=== PATIENT | male | born 1995 | race Caucasian/White ===

== ENCOUNTER 2018-06-26 05:32 | Emergency (ER) | payer OTHER ==
[2018-06-26] MEDS ORDERED: Aspirin 325 mg EC Tablets PO STA (06:25)
--- NOTE | 2018-06-26 06:25 | C.PDOC ---
Time Seen by Provider: 06/26/18 06:18 Chief Complaint (Nursing): Chest Pain Past Medical History Vital Signs: Last Vital Signs Temp Pulse 73 06/26/18 06:23 Resp 12 06/26/18 06:23 BP 138/100 H 06/26/18 06:23 Pulse Ox 99 06/26/18 06:23 - Medical History PMH: Denies: Chronic Kidney Disease - Social History Hx Tobacco Use: No Hx Alcohol Use: Yes Hx Substance Use: No - Immunization History Hx Tetanus Toxoid Vaccination: No Hx Influenza Vaccination: No Hx Pneumococcal Vaccination: No ED Course And Treatment O2 Sat by Pulse Oximetry: 99 Disposition Counseled Patient/Family Regarding: Studies Performed, Diagnosis - Disposition Disposition Time: 06:25 Forms: [facility] (Bahraini)
--- NOTE | 2018-06-26 06:28 | C.PDOC ---
History Of Present Illness 23 year old male presents to the emergency department with complaints of chest pain and abdominal pain. Patient reports that he woke up with mid-epigastric discomfort, which he describes as dull, aching, and radiating to his back. He also reports symptoms of left chest wall pressure, but denies nausea or vomiting. He qualifies his discomfort as 4/10 in severity. Time Seen by Provider: 06/26/18 06:18 Chief Complaint (Nursing): Chest Pain History Per: Patient History/Exam Limitations: no limitations Onset/Duration Of Symptoms: Hrs Current Symptoms Are (Timing): Still Present Severity: Moderate Pain Scale Rating Of: 4 Quality: Dull, Aching, Other (discomfort) Associated Symptoms: denies: Nausea, Other (vomiting) Alleviating Factors: None Recent travel outside of the [place]: No Additional History Per: Family Past Medical History Reviewed: Historical Data, Nursing Documentation, Vital Signs Vital Signs: Last Vital Signs Temp 97.9 F 06/26/18 05:39 Pulse 73 06/26/18 06:23 Resp 12 06/26/18 06:23 BP 138/100 H 06/26/18 06:23 Pulse Ox 99 06/26/18 06:32 - Medical History PMH: No Chronic Diseases Denies: Chronic Kidney Disease Surgical History: No Surg Hx Family History: States: No Known Family Hx - Social History Hx Tobacco Use: No Hx Alcohol Use: Yes Hx Substance Use: No - Immunization History Hx Tetanus Toxoid Vaccination: No Hx Influenza Vaccination: No Hx Pneumococcal Vaccination: No Review Of Systems Constitutional: Negative for: Fever, Chills Eyes: Negative for: Vision Change ENT: Negative for: Throat Pain Cardiovascular: Positive for: Chest Pain Respiratory: Negative for: Shortness of Breath Gastrointestinal: Positive for: Abdominal Pain. Negative for: Nausea, Vomiting Genitourinary: Negative for: Dysuria Musculoskeletal: Positive for: Back Pain Skin: Negative for: Rash Neurological: Negative for: Weakness Psych: Negative for: Anxiety Physical Exam - Physical Exam Appears: Non-toxic, No Acute Distress Skin: Warm, Dry Head: Normacephalic Eye(s): bilateral: Normal Inspection Oral Mucosa: Moist Neck: Trachea Midline, Supple Chest: Symmetrical, No Tenderness Cardiovascular: Rhythm Regular, No Murmur Respiratory: No Rales, No Rhonchi, No Wheezing Gastrointestinal/Abdominal: Soft, Tenderness (mid-epigastric tenderness), No Distention, No Guarding, No Rebound Back: Normal Inspection, No CVA Tenderness, No Vertebral Tenderness, No Paraspinal Tenderness Extremity: Normal ROM Extremity: Bilateral: Atraumatic, Normal Color And Temperature Pulses: Left Dorsalis Pedis: Normal, Right Dorsalis Pedis: Normal Neurological/Psych: Oriented x3 Gait: Steady ED Course And Treatment ECG: Interpreted By Me, Viewed By Me ECG Rhythm: Sinus Rhythm, Nonspecific Changes O2 Sat by Pulse Oximetry: 99 (RA) Pulse Ox Interpretation: Normal Progress Note: Plan: CT Chest. EKG. CMP. Drug Screen. Troponin. CBC. PTT. Prothrombin Time. Ecotrin 325mg PO. Urinalysis Disposition - Disposition Disposition Time: 06:45 Condition: FAIR Forms: [facility] (Vietnamese) - Clinical Impression Clinical Impression: Chest pain - Scribe Statement The provider has reviewed the documentation as recorded by the Scribe (Omid Goodwin) Provider Attestation: All medical record entries made by the Scribe were at my direction and personally dictated by me. I have reviewed the chart and agree that the record accurately reflects my personal performance of the history, physical exam, medical decision making, and the department course for this patient. I have also personally directed, reviewed, and agree with the discharge instructions and disposition. Physician Patient Turnover Patient Signed Over To: Delia Narayanan Handoff Comments: pending labs and disposition Decision To Admit - . Patient Diagnosis: Chest pain
[2018-06-26 06:44] LABS: BASO # 0.1 K/uL (0.0-0.2); BASO % 1.2 % (0.0-2.0); EOS # 0.3 K/uL (0.0-0.7); EOS % 3.6 % (0.0-4.0); HEMOGLOBIN 14.8 g/dL (12.0-18.0); LYMPH # 1.6 K/uL (1.0-4.3); LYMPH % 20.5 % (20.0-40.0); MEAN CORPUSCULAR HEMOGLOBIN 27.6 pg (27.0-31.0); MEAN CORPUSCULAR HGB CONC 33.6 g/dL (33.0-37.0); MEAN PLATELET VOLUME 7.5 fL (7.2-11.7); MONO # 0.5 K/uL (0.0-0.8); MONO % 6.8 % (0.0-10.0); NEUT # 5.4 K/uL (1.8-7.0); NEUT % 67.9 % (50.0-75.0); RBC 5.38 Mil/uL (4.40-5.90); RED CELL DISTRIBUTION WIDTH 14.2 % (11.5-14.5); WHITE BLOOD COUNT 7.9 K/uL (4.8-10.8)
[2018-06-26] MEDS ORDERED: Aspirin 325 mg EC Tablets PO ONE (06:47)
[2018-06-26 06:53] LABS: PROTHROMBIN TIME 10.5 SECONDS (9.7-12.2)
[2018-06-26 06:55] LABS: ALB/GLOB RATIO 1.7 (1.0-2.1); ALBUMIN 4.5 g/dL (3.5-5.0); ALT/SGPT 100 U/L (21-72); AST/SGOT 101 U/L (17-59); BLOOD UREA NITROGEN 14 mg/dL (9-20); CALCIUM 9.1 mg/dl (8.6-10.4); GFR AFRICAN-AMERICAN > 60; GFR NON-AFRICAN AMERICAN > 60
[2018-06-26 07:01] LABS: URINE BILIRUBIN NEGATIVE (NEGATIVE); URINE BLOOD NEGATIVE (NEGATIVE); URINE CLARITY Clear (Clear); URINE COLOR Yellow (YELLOW); URINE GLUCOSE (UA) NORMAL (Normal); URINE LEUKOCYTE ESTERASE NEG Leu/uL (Negative); URINE PROTEIN NEGATIVE (NEGATIVE)
[2018-06-26 07:17] LABS: BARBITURATES, UR NEGATIVE (NEGATIVE); BENZODIAZEPINES, UR NEGATIVE (NEGATIVE); OPIATES, UR NEGATIVE (NEGATIVE); PHENCYCLIDINE, UR NEGATIVE (NEGATIVE)
[2018-06-26] MEDS ORDERED: Iodixanol 320 MG/ML 100 ML BOTTLE IV ONE (07:31)
[2018-06-26] MEDS ORDERED: Aluminum Hydroxide/Magnesium Hydroxide Susp (30 mL) PO STA (07:41)
[2018-06-26] MEDS ORDERED: Sodium Chloride 0.9% 500 ML IV ONE ×2 (07:41→07:51)
[2018-06-26] MEDS ORDERED: Belladonna-Phenobarbital PO STA (07:41)
[2018-06-26 07:42] VITALS: RESP 18; O2SAT 100
[2018-06-26] MEDS ORDERED: DiphenhydrAMINE 50 mg/ml Inj IVP STA (07:48)
[2018-06-26] MEDS ORDERED: Aluminum Hydroxide/Magnesium Hydroxide Susp (30 mL) ONE (07:51)
[2018-06-26] MEDS ORDERED: Belladonna-Phenobarbital ONE (07:51)
[2018-06-26 07:53] LABS: LIPASE 101 U/L (23-300)
[2018-06-26] MEDS ORDERED: DiphenhydrAMINE 50 mg/ml Inj ONE (08:34)
[2018-06-26 09:09] VITALS: BP 113/74; PULSE 68; TEMP 98.4
--- NOTE | 2018-06-26 21:13 | RAD ---
Date of service: 06/26/2018 HISTORY: chest and back pain COMPARISON: No prior. TECHNIQUE: Chest PA and lateral FINDINGS: LUNGS: No active pulmonary disease. PLEURA: No significant pleural effusion identified. No pneumothorax apparent. CARDIOVASCULAR: Normal. OSSEOUS STRUCTURES: No significant abnormalities. VISUALIZED UPPER ABDOMEN: Normal. OTHER FINDINGS: None. IMPRESSION: No active disease.
== END 2018-06-26 09:30 | disposition home or self-care (01) ==
LOC: C.ER 05:32
DX: R07.9 Chest pain, unspecified (principal)
CPT/HCPCS: 71046; 80053; 80324; 80345; 80346; 80349; 80353; 80358; 80361; 81001; 83690; 83992; 84484; 85025; 85610; 85730; 93005; 96374; 96375; 99285; J1200; J7040; Q9967